=== PATIENT | male | born 1960 | race Caucasian/White ===

== ENCOUNTER → 2018-05-05 | Outpatient (CLI) | payer OTHER | END | disposition home or self-care (01) | LOC: CFH 07:15 | PROVIDERS: ATTEND Internal Medicine | DX: E11.65 Type 2 diabetes mellitus with hyperglycemia (principal); I10 Essential (primary) hypertension; E03.9 Hypothyroidism, unspecified; E78.5 Hyperlipidemia, unspecified | CPT/HCPCS: 93975 ==

== ENCOUNTER 2018-09-06 13:22 | Inpatient (IN) | payer OTHER ==
[~2018-09-06] VITALS: Ht 172.7 cm; Wt 86.2 kg
[2018-09-06] MEDS ORDERED: [UNRECOGNIZED DRUG - OTHER] (14:09)
[2018-09-06] MEDS ORDERED: NAPR-857 PO (14:09)
[2018-09-06] MEDS ORDERED: METF500S5 PO (14:09)
[2018-09-06] MEDS ORDERED: OLME1TAB44 PO (14:09)
[2018-09-06] MEDS ORDERED: OMEP20TA62 PO (14:09)
[2018-09-06] MEDS ORDERED: CYCL-259 PO (14:09)
[2018-09-06] MEDS ORDERED: ACYC200O6 PO (14:09)
[2018-09-06] MEDS ORDERED: FEXO60TA24 PO (14:09)
[2018-09-06] MEDS ORDERED: INSU100I11 SQ (14:09)
[2018-09-06] MEDS ORDERED: ASPI-515 PO (14:09)
[2018-09-06] MEDS ORDERED: DIAZ10TA4 PO (14:09)
[2018-09-06] MEDS ORDERED: METO1TAB6 PO (14:09)
[2018-09-06] MEDS ORDERED: FENO50CA2 PO (14:09)
--- NOTE | 2018-09-06 14:12 | NUR ---
PT PLACED ON MONITOR, GOWN ORTHOTIST PROSTHETIST LIGHT AT . NO CURRENT COMPLAINTS
[2018-09-06 14:15] LABS: BASOPHILS # (AUTO) 0.02 x10^3/uL (0-0.1); BASOPHILS % (AUTO) 0 % (0-1); EOSINOPHILS # (AUTO) 0.15 x10^3/uL (0-0.4); EOSINOPHILS % (AUTO) 2 % (1-7); LYMPHOCYTES # (AUTO) 2.41 x10^3/uL (1-3.4); LYMPHOCYTES % (AUTO) 36 % (22-44); MD NO; MEAN CORPUSCULAR HEMOGLOBIN 31.4 pg (27.5-34.5); MEAN CORPUSCULAR HGB CONC 33.5 g/dL (33.2-36.2); MEAN CORPUSCULAR VOLUME 93.9 fL (81-97); MEAN PLATELET VOLUME 8.7 fL (7.4-10.4); MONOCYTES % (AUTO) 6 % (2-9); NEUTROPHILS # (AUTO) 3.71 x10^3/uL (1.8-6.8); NEUTROPHILS % (AUTO) 56 % (42-75); PLATELET COUNT 194 x10^3/uL (130-400); RED BLOOD COUNT 4.42 x10^6/uL (4.38-5.82); RED CELL DISTRIBUTION WIDTH 12.6 % (9.4-14.8)
[2018-09-06 14:17] LABS: PROTHROMBIN TIME 10.6 Seconds (9.6-11.5)
[2018-09-06 14:20] LABS: ANION GAP 10 mmol/L (5-15); CALCIUM 8.8 mg/dL (8.5-10.1); CHLORIDE 104 mmol/L (98-107); CREATININE 2.04 mg/dL (0.7-1.3)
[2018-09-06 14:22] LABS: ALANINE AMINOTRANSFERASE 39 U/L (12-78); ALKALINE PHOSPHATASE 76 U/L (45-117); BILIRUBIN,TOTAL 0.5 mg/dL (0.2-1.0); TOTAL PROTEIN 7.2 g/dL (6.4-8.2)
[2018-09-06] MEDS ORDERED: ASPIRIN 325 MG TABLET PO STA (16:12)
[2018-09-06 18:41] VITALS: BP 155/72
[2018-09-06 19:37] VITALS: BP 131/75
[2018-09-06] MEDS ORDERED: PROMETHAZINE 25 MG/ML, 1ML IM PRN (23:00)
[2018-09-06] MEDS ORDERED: POLYETHYLENE GLYCOL 17 GM PACKET PO PRN (23:00)
[2018-09-06] MEDS ORDERED: morphine SULFATE 10 MG/ML, 1ML IVPush PRN (23:00)
[2018-09-06] MEDS ORDERED: ATORVASTATIN 40 MG TABLET PO SCH (23:00)
[2018-09-06] MEDS ORDERED: ONDANSETRON 4 MG TABLET PO PRN (23:00)
[2018-09-06] MEDS ORDERED: ENALAPRILAT 1.25 MG/ML, 2ML IV PRN (23:00)
[2018-09-06] MEDS ORDERED: DOCUSATE 100 MG CAPSULE PO PRN (23:00)
[2018-09-06] MEDS ORDERED: GABAPENTIN 300 MG CAPSULE PO PRN (23:00)
[2018-09-06] MEDS ORDERED: ONDANSETRON 2MG/ML, 2ML IVPush PRN (23:00)
[2018-09-06] MEDS ORDERED: OXYcodone IR 5MG TABLET PO PRN (23:00)
[2018-09-06] MEDS: INSULIN LISPRO 100 UNITS/ML, PEN SQ-INSULIN SCH (23:30)
[2018-09-07] MEDS ORDERED: CYCL5TAB PO (00:05)
[2018-09-07] MEDS ORDERED: AMLO5TAB10 PO (00:05)
[2018-09-07] MEDS ORDERED: METO-282 PO (00:05)
[2018-09-07] MEDS ORDERED: METF500T17 PO (00:05)
[2018-09-07] MEDS ORDERED: [UNRECOGNIZED DRUG - CODE] PO (00:05)
[2018-09-07] MEDS ORDERED: INSU100V INJ (00:05)
[2018-09-07] MEDS ORDERED: ACYC-57 PO (00:05)
[2018-09-07] MEDS ORDERED: FEXO1TAB29 PO (00:05)
[2018-09-07] MEDS ORDERED: NAPR-858 PO (00:05)
[2018-09-07 02:14] VITALS: BP 128/69
[2018-09-07 05:11] LABS: CHOL/HDL RATIO 5.9; LDL/HDL RATIO 3.6 (0.5-3.0)
[2018-09-07 07:14] LABS: BASOPHILS # (AUTO) 0.04 x10^3/uL (0-0.1); BASOPHILS % (AUTO) 1 % (0-1); EOSINOPHILS # (AUTO) 0.15 x10^3/uL (0-0.4); EOSINOPHILS % (AUTO) 3 % (1-7); LYMPHOCYTES # (AUTO) 2.93 x10^3/uL (1-3.4); LYMPHOCYTES % (AUTO) 47 % (22-44); MD NO; MEAN CORPUSCULAR HEMOGLOBIN 31.6 pg (27.5-34.5); MEAN CORPUSCULAR VOLUME 92.9 fL (81-97); MEAN PLATELET VOLUME 8.6 fL (7.4-10.4); MONOCYTES # (AUTO) 0.42 x10^3/uL (0.2-0.8); MONOCYTES % (AUTO) 7 % (2-9); NEUTROPHILS # (AUTO) 2.71 x10^3/uL (1.8-6.8); NEUTROPHILS % (AUTO) 43 % (42-75); PLATELET COUNT 165 x10^3/uL (130-400); RED BLOOD COUNT 4.06 x10^6/uL (4.38-5.82); RED CELL DISTRIBUTION WIDTH 12.6 % (9.4-14.8)
[2018-09-07 07:41] LABS: ANION GAP 6 mmol/L (5-15); CALCIUM 8.9 mg/dL (8.5-10.1); CHLORIDE 106 mmol/L (98-107); CREATININE 2.03 mg/dL (0.7-1.3)
[2018-09-07] MEDS: INSULIN LISPRO 100 UNITS/ML, PEN SQ-INSULIN SCH ×4 (07:59→20:08)
[2018-09-07] MEDS ORDERED: ASPIRIN 81 MG TABLET CHEW PO/NG SCH (09:00)
[2018-09-07] MEDS ORDERED: CLOPIDOGREL 75 MG TABLET PO SCH (09:00)
[2018-09-07] MEDS: CLOPIDOGREL 75 MG TABLET PO SCH (09:03)
[2018-09-07 09:26] VITALS: BP 138/76
[2018-09-07] MEDS ORDERED: ONDANSETRON 2MG/ML, 2ML IVPush PRN (12:00)
[2018-09-07] MEDS ORDERED: ACETAMINOPHEN 325 MG TABLET PO PRN (12:00)
--- NOTE | 2018-09-07 12:18 | NUR ---
REC REG/THIN; no further [employer] intervention for swallow is indicated Addendum: 09/07/18 at 1428 by ADORE THOMPSON Amended: Links added.
[2018-09-07] MEDS ORDERED: DIAZEPAM 5 MG TABLET ONE (12:43)
[2018-09-07] MEDS: METOPROLOL SUCCINATE 25 MG TAB.ER.24H PO SCH (12:56)
[2018-09-07] MEDS: CYCLOBENZAPRINE 10 MG TABLET PO SCH ×2 (12:56→20:12)
[2018-09-07] MEDS: AMLODIPINE 5 MG TABLET PO SCH (12:57)
[2018-09-07] MEDS: FENOFIBRATE 145 MG TABLET PO SCH (12:57)
[2018-09-07] MEDS: DIAZEPAM 10 MG TABLET PO SCH (12:57)
[2018-09-07 13:24] LABS: MICROSCOPIC NOT IND
[2018-09-07 13:25] LABS: CULTURE INDICATED? NO
[2018-09-07 13:36] LABS: CREATININE,URINE RANDOM 75.5 mg/dL
[2018-09-07] MEDS ORDERED: ACYCLOVIR 800 MG TABLET PO SCH (14:00)
[2018-09-07] MEDS: SODIUM CHLORIDE 0.9% 1,000 ML IV SCH (15:21)
[2018-09-07 16:50] VITALS: BP 147/79
[2018-09-07] MEDS ORDERED: CYCLOBENZAPRINE 10 MG TABLET PO SCH (21:00)
[2018-09-07] MEDS ORDERED: ATORVASTATIN 80 MG TABLET PO SCH (21:00)
[2018-09-07 21:11] VITALS: BP 144/77
[2018-09-08] MEDS: SODIUM CHLORIDE 0.9% 1,000 ML IV SCH (00:36)
[2018-09-08 01:09] VITALS: BP 149/82
[2018-09-08 06:51] VITALS: BP 171/80
[2018-09-08 08:45] LABS: BASOPHILS # (AUTO) 0.03 x10^3/uL (0-0.1); BASOPHILS % (AUTO) 0 % (0-1); EOSINOPHILS # (AUTO) 0.12 x10^3/uL (0-0.4); EOSINOPHILS % (AUTO) 2 % (1-7); LYMPHOCYTES # (AUTO) 2.35 x10^3/uL (1-3.4); LYMPHOCYTES % (AUTO) 40 % (22-44); MD NO; MEAN CORPUSCULAR HEMOGLOBIN 31.3 pg (27.5-34.5); MEAN CORPUSCULAR VOLUME 92.2 fL (81-97); MEAN PLATELET VOLUME 8.2 fL (7.4-10.4); MONOCYTES # (AUTO) 0.36 x10^3/uL (0.2-0.8); MONOCYTES % (AUTO) 6 % (2-9); NEUTROPHILS # (AUTO) 3.01 x10^3/uL (1.8-6.8); NEUTROPHILS % (AUTO) 51 % (42-75); PLATELET COUNT 177 x10^3/uL (130-400); RED BLOOD COUNT 4.53 x10^6/uL (4.38-5.82); RED CELL DISTRIBUTION WIDTH 12.8 % (9.4-14.8)
[2018-09-08 08:54] LABS: ANION GAP 8 mmol/L (5-15); CALCIUM 8.5 mg/dL (8.5-10.1); CHLORIDE 108 mmol/L (98-107)
[2018-09-08 08:56] LABS: CREATININE 1.57 mg/dL (0.7-1.3)
[2018-09-08] MEDS ORDERED: FENOFIBRATE 145 MG TABLET PO SCH (09:00)
[2018-09-08] MEDS ORDERED: DIAZEPAM 10 MG TABLET PO SCH (09:00)
[2018-09-08] MEDS ORDERED: ACYCLOVIR 800 MG TABLET PO SCH (09:00)
[2018-09-08] MEDS ORDERED: ASPIRIN 81 MG TABLET EC PO SCH (09:00)
[2018-09-08] MEDS ORDERED: METOPROLOL SUCCINATE 25 MG TAB.ER.24H PO SCH (09:00)
[2018-09-08] MEDS ORDERED: AMLODIPINE 5 MG TABLET PO SCH (09:00)
[2018-09-08] MEDS ORDERED: DIAZEPAM 5 MG TABLET ONE (09:05)
[2018-09-08] MEDS: INSULIN LISPRO 100 UNITS/ML, PEN SQ-INSULIN SCH ×2 (09:11→12:27)
[2018-09-08] MEDS: CYCLOBENZAPRINE 10 MG TABLET PO SCH (11:28)
[2018-09-08] MEDS: DIAZEPAM 10 MG TABLET PO SCH (11:28)
[2018-09-08] MEDS: METOPROLOL SUCCINATE 25 MG TAB.ER.24H PO SCH (11:28)
[2018-09-08] MEDS: CLOPIDOGREL 75 MG TABLET PO SCH (11:29)
[2018-09-08] MEDS: AMLODIPINE 5 MG TABLET PO SCH (11:29)
[2018-09-08] MEDS: FENOFIBRATE 145 MG TABLET PO SCH (11:29)
[2018-09-08] MEDS ORDERED: ATOR-2 PO (12:11)
[2018-09-08] MEDS ORDERED: CLOP75TA PO (12:11)
[2018-09-08 12:34] VITALS: BP 146/72
== END 2018-09-08 13:55 | disposition home or self-care (01) | DRG 64 ==
LOC: ED 14:57 → EDIP 15:35 → 4WST 18:28 → DCLOUNGE 09-08 13:38
PROVIDERS: ADMIT Hospitalist; ATTEND Hospitalist
DX: I63.233 Cerebral infarction due to unspecified occlusion or stenosis of bilateral carotid arteries (principal); N17.0 Acute kidney failure with tubular necrosis; Q21.1 Atrial septal defect; E03.9 Hypothyroidism, unspecified; E11.65 Type 2 diabetes mellitus with hyperglycemia; E78.1 Pure hyperglyceridemia; E78.5 Hyperlipidemia, unspecified; G47.33 Obstructive sleep apnea (adult) (pediatric); I11.9 Hypertensive heart disease without heart failure; Z79.4 Long term (current) use of insulin; Z86.73 Personal history of transient ischemic attack (TIA), and cerebral infarction without residual deficits; Z79.82 Long term (current) use of aspirin; Z79.899 Other long term (current) drug therapy
CPT/HCPCS: 36415; 70544; 70551; 71045; 76770; 80048; 80053; 80061; 81003; 82436; 82570; 84133; 84300; 85025; 85610; 93005; 93306; 93880; G0378; J7030

== ENCOUNTER → 2018-12-26 | Outpatient (CLI) | payer OTHER ==
[~2018-12-26] MED LIST: ACYC-57 PO; ACYC200O6 PO; AMLO5TAB10 PO; ASPI-515 PO; ATOR-2 PO; CLOP75TA PO; CYCL-259 PO; CYCL5TAB PO; DIAZ10TA4 PO; FENO50CA2 PO; FEXO1TAB29 PO; FEXO60TA24 PO; INSU100I11 SQ; INSU100V INJ; METF500S5 PO; METF500T17 PO; METO-282 PO; METO1TAB6 PO; NAPR-857 PO; NAPR-858 PO; OLME1TAB44 PO; OMEP20TA62 PO; [UNRECOGNIZED DRUG - CODE] PO; [UNRECOGNIZED DRUG - OTHER]
== END | disposition home or self-care (01) ==
LOC: CFH 07:19
PROVIDERS: ATTEND Psychiatry & Neurology Neurology
DX: I65.23 Occlusion and stenosis of bilateral carotid arteries (principal); I63.9 Cerebral infarction, unspecified
CPT/HCPCS: 93880